=== PATIENT | female | born 1985 | race Caucasian/White ===

== ENCOUNTER 2019-05-01 15:27 | Inpatient (IN) | payer SELFPAY ==
--- NOTE | 2019-05-01 15:56 | ER Document Report ---
ED Medical Screen (RME) - General Chief Complaint: Fall Injury Stated Complaint: FALL/LEFT ANKLE PAIN Time Seen by Provider: 05/01/19 15:48 Primary Care Provider: HOSSEIN MENA DO [Primary Care Provider] - Follow up as needed Mode of Arrival: Wheelchair Information source: Patient Notes: This 33-year-old female presents emergency department with left ankle and foot pain. Reports she fell on Tuesday and has not been able to walk since that time. She reports when she lifts her foot up her foot just falls like it is . Patient has ecchymosis and dark area to the anterior part of her ankle. She reports the dark area appeared on Tuesday. She reports she did not have any bleeding at all at the time of her accident. I have greeted and performed a rapid initial assessment of this patient. A comprehensive ED assessment and evaluation of the patient, analysis of test results and completion of the medical decision making process will be conducted by additional ED providers. Dictation of this chart was performed using voice recognition software; therefore, there may be some unintended grammatical errors. - Related Data Allergies/Adverse Reactions: No Known Allergies Allergy (Verified 05/01/19 15:47) Past Medical History Past Surgical History: Reports: Hx Section - Immunizations Hx Diphtheria, Pertussis, Tetanus Vaccination: Yes Physical Exam - Vital signs Vitals: Temp Pulse Resp BP 97.7 F 90 21 H 146/94 H 05/01/19 15:40 05/01/19 15:40 05/01/19 15:40 05/01/19 15:40 Course - Vital Signs Vital signs: Temp Pulse Resp BP Pulse Ox 97.7 F 90 21 H 146/94 H 05/01/19 15:40 05/01/19 15:40 05/01/19 15:40 05/01/19 15:40 Doctor's Discharge - Discharge Referrals: HOSSEIN MENA DO [Primary Care Provider] - Follow up as needed
--- NOTE | 2019-05-01 16:26 | RADIOLOGY REPORT (SQ) ---
EXAM DESCRIPTION: ANKLE LEFT COMPLETE COMPLETED DATE/TIME: 05/01/2019 4:15 pm REASON FOR STUDY: fall unable to walk COMPARISON: None. NUMBER OF VIEWS: Three views. TECHNIQUE: AP, lateral, and oblique radiographic images acquired of the left ankle. LIMITATIONS: None. FINDINGS: MINERALIZATION: Normal. BONES: Oblique fracture of the distal tibia. There also appears to be a fracture component extending to the plafond. Slightly comminuted fracture of the distal fibula. JOINTS: No effusions. SOFT TISSUES: No soft tissue swelling. No foreign body. OTHER: No other significant finding. IMPRESSION: Tibial and fibular fractures. The ankle mortise is maintained. TECHNICAL DOCUMENTATION: JOB ID: [id number] [employer]- All Rights Reserved Reading location - IP/workstation name: [email or web address]
[2019-05-01] MEDS ORDERED: ONDANSETRON HCL INJ/PF 4 MG/2 ML SDV IV ONE ×2 (16:36→19:38)
[2019-05-01] MEDS ORDERED: DIPH/PERTUSS(ACELL)/TETANUS VAC/PF 0.5 ML SYR (>=10YO) IM ONE (16:37)
[2019-05-01] MEDS ORDERED: MORPHINE SULFATE 10 MG/ML INJ IV ONE ×2 (16:37→18:07)
--- NOTE | 2019-05-01 16:39 | ER Document Report ---
ED Extremity Problem, Lower - General Chief Complaint: Ankle Pain Stated Complaint: FALL/LEFT ANKLE PAIN Time Seen by Provider: 05/01/19 15:48 Mode of Arrival: Wheelchair Information source: Patient, Relative Notes: Ms. Meza is an otherwise healthy 33 yo F presenting to ED for L ankle pain and inability to ambulate. Patient states she was drinking heavily on Tuesday and fell of a porch, approx 8-12 inches up from the ground. Patient states she was able to get up and get into bed. She states when she attempted to wake up Tuesday morning to go to the bathroom, she was unable to walk so she scooted herself on the ground to the toilet. She thought it was a bad sprain though her significant other insisted that she be evaluated. She is unsure where and how she sustained the medial side wound and denies ever seeing a piece of bone sticking out of her leg. Patient endorses significant pain at this point in time but she is able to move her toes. She denies any other trauma anywhere on her body. Her last tetanus shot was in 2008 or 2009. She has no known medical problems and no known allergies. Patient is a G1, P1 with an otherwise healthy 10-year-old son. - Related Data Allergies/Adverse Reactions: No Known Allergies Allergy (Verified 05/01/19 15:47) Past Medical History - General Information source: Patient - Social History Smoking Status: Current Every Day Smoker Family History: Reviewed & Not Pertinent Patient has suicidal ideation: No Patient has homicidal ideation: No Past Surgical History: Reports: Hx Section - Immunizations Hx Diphtheria, Pertussis, Tetanus Vaccination: Yes Review of Systems - Review of Systems Constitutional: See HPI EENT: No symptoms reported Cardiovascular: No symptoms reported Respiratory: No symptoms reported Gastrointestinal: No symptoms reported Genitourinary: No symptoms reported Female Genitourinary: No symptoms reported Musculoskeletal: See HPI Skin: No symptoms reported Hematologic/Lymphatic: No symptoms reported Neurological/Psychological: No symptoms reported Physical Exam - Vital signs Vitals: Temp Pulse Resp BP 97.7 F 90 21 H 146/94 H 05/01/19 15:40 05/01/19 15:40 05/01/19 15:40 05/01/19 15:40 Interpretation: Normal - General General appearance: Appears well, Alert - HEENT Head: Normocephalic, Atraumatic Eyes: Normal Pupils: PERRL - Respiratory Respiratory status: No respiratory distress Chest status: Nontender Breath sounds: Normal Chest palpation: Normal - Cardiovascular Rhythm: Regular Heart sounds: Normal auscultation Murmur: No - Abdominal Inspection: Normal Distension: No distension Bowel sounds: Normal Tenderness: Nontender Organomegaly: No organomegaly - Back Back: Normal, Nontender - Extremities General upper extremity: Normal inspection, Nontender, Normal color, Normal ROM, Normal temperature General lower extremity: Normal temperature, Other - Left ankle swelling with ecchymosis. There is approximately a 1.5 medial ankle wound with a small amount of scabbing. Left ankle appears grossly deformed. Biphasic pulse appreciated by Doppler. +1 palpable DP, decreased in comparison to the right lower extremity. Left lower extremity is approximately 3 cm shorter than the right lower extremity.. No: Maximiliano's sign - Neurological Neuro grossly intact: Yes Cognition: Normal Orientation: AAOx4 [place] Coma Scale Eye Opening: Spontaneous [place] Coma Scale Verbal: Oriented [place] Coma Scale Motor: Obeys Commands [place] Coma Scale Total: 15 Speech: Normal Motor strength normal: LUE, RUE, LLE, RLE Sensory: Normal - Psychological Associated symptoms: Normal affect, Normal mood - Skin Skin Temperature: Warm Skin Moisture: Dry Skin Color: Normal Course - Re-evaluation Re-evalutation: Patient is uncomfortable appearing but nontoxic. Initial vitals within normal limits. Differential diagnosis includes fracture, dislocation, open fracture, laceration X-ray obtained from triage shows evidence of a significant tibial as well as fibular fracture with a close proximity between the medial surface of the tibia and the area where the wound is appreciated. Concerned that at some point the fracture was open. Patient ordered for tetanus, and 2 g of Ancef. Patient also ordered for Zofran as well as morphine for pain control. Will obtain preop labs. CBC, CMP and PT/INR all within normal limits. EKG within normal limits. Chest x-ray also unremarkable. 05/01/19 16:[address] Roblero, orthopedic on-call. Recommended applying Betadine to the wound, placing a posterior leg splint after reduction. Amenable to 2 g Ancef, and tetanus. Requesting preop labs and admit to his service. 05/01/19 18:15 Patient interestingly sedated with 10 mg of etomidate. Reduction was performed and splinted in a posterior leg. Postreduction x-ray ordered. Soon after the reduction, the patient was having some pretty significant pain so she is given an additional 4 mg of morphine. 05/01/19 18:53 Postreduction x-ray shows improvement of fracture alignment. - Vital Signs Vital signs: Temp Pulse Resp BP Pulse Ox 97.7 F 97 13 163/92 H 100 05/01/19 15:40 05/01/19 18:17 05/01/19 18:31 05/01/19 18:31 05/01/19 18:31 - Laboratory Result Diagrams: 05/01/19 16:40 05/01/19 16:40 - Diagnostic Test Radiology reviewed: Image reviewed, Reports reviewed - EKG Interpretation by Me EKG shows normal: Sinus rhythm, [place], Intervals, QRS Complexes Rate: Normal Rhythm: NSR Procedures - Conscious Sedation Conscious sedation Consent obtained: Yes Prior complications: Procedural sedation Normal healthy pt.: P1. - ASA Classification Airway Evaluation: Normal anatomy Mallampati Classification: Class 2 Used during procedure: Suction available, IV access obtained, Pulse ox on pt., youth nutritional monitor on pt., Other - Capnography Medications administered: Etomidate Reversal agents: None I personally performed/intraservice time: Sedation, 30 min or less Complications: No - Immobilization Left Posterior Leg Pre-Proc Neuro Vasc Exam: Normal Immobilizer type: Short Leg Posterior Performed by: Provider assisted, RN, PCT Post-Proc Neuro Vasc Exam: Normal Alignment checked and good: Yes - Joint Reduction/Fracture Care Left Leg Consent obtained: Yes Conscious sedation: Yes Pre-procedure NV exam: Yes - normal Fracture: Open Manipulation comment: distraction Post-procedure NV exam: Yes - normal Post-reduction x-ray: Joint reduced Reduction attempts: 1 Complications: No Discharge - Discharge Clinical Impression: Fracture of tibia with fibula, left, open, Fall, Left ankle pain Condition: Good Disposition: ADMITTED INPATIENT Admitting Provider: Annika Unit Admitted: Surgical Floor
[2019-05-01 16:59] LABS: ABSOLUTE LYMPHOCYTES (AUTO) 1.4 10^3/uL (0.5-4.7); ABSOLUTE MONOCYTES (AUTO) 0.9 10^3/uL (0.1-1.4); ABSOLUTE NEUT (AUTO) 6.7 10^3/uL (1.7-8.2); BASOPHILS % (AUTO) 0.5 % (0-2); EOSINOPHILS % (AUTO) 0.4 % (0-6); HEMATOCRIT 41.2 % (36.0-47.0); LYMPHOCYTES % (AUTO) 15.1 % (13-45); MEAN CORPUSCULAR HEMOGLOBIN 31.7 pg (27.0-33.4); MEAN CORPUSCULAR HGB CONC 33.9 g/dL (32.0-36.0); MEAN CORPUSCULAR VOLUME 93 fl (80-97); MONOCYTES % (AUTO) 9.7 % (3-13); PLATELET COUNT 222 10^3/uL (150-450); RED BLOOD COUNT 4.42 10^6/uL (3.72-5.28); RED CELL DISTRIBUTION WIDTH 12.8 % (11.5-14.0); SEGMENTED NEUTROPHILS % (AUTO) 74.3 % (42-78); TOTAL CELLS COUNTED % (AUTO) 100 %; WHITE BLOOD COUNT 9.1 10^3/uL (4.0-10.5)
--- NOTE | 2019-05-01 17:01 | RADIOLOGY REPORT (SQ) ---
EXAM DESCRIPTION: CHEST SINGLE VIEW COMPLETED DATE/TIME: 05/01/2019 4:52 pm REASON FOR STUDY: pre-op cxr COMPARISON: 11/19/2012 EXAM PARAMETERS: NUMBER OF VIEWS: One view. TECHNIQUE: Single frontal radiographic view of the chest acquired. RADIATION DOSE: NA LIMITATIONS: None. FINDINGS: LUNGS AND PLEURA: No opacities, masses or pneumothorax. No pleural effusion. MEDIASTINUM AND HILAR STRUCTURES: No masses. Contour normal. HEART AND VASCULAR STRUCTURES: Cardiomegaly. No pulmonary edema. BONES: No acute findings. HARDWARE: None in the chest. OTHER: No other significant finding. IMPRESSION: Cardiomegaly without pulmonary edema. TECHNICAL DOCUMENTATION: JOB ID: [id number] [employer]- All Rights Reserved Reading location - IP/workstation name: [email or web address]
[2019-05-01 17:16] LABS: INTERNATIONAL RATION (INR) 0.89
[2019-05-01] MEDS ORDERED: ETOMIDATE INJ/PF 20 MG/10 ML SDV IV ONE (17:27)
[2019-05-01 17:30] LABS: ALBUMIN 4.4 g/dL (3.5-5.0); ALKALINE PHOSPHATASE 82 U/L (38-126); ANION GAP 12 (5-19); ASPARTATE AMINO TRANSFERASE 30 U/L (14-36); BILIRUBIN,DIRECT 0.2 mg/dL (0.0-0.4); BILIRUBIN,TOTAL 0.7 mg/dL (0.2-1.3); BLOOD UREA NITROGEN 11 mg/dL (7-20); CALCIUM 9.7 mg/dL (8.4-10.2); CARBON DIOXIDE 22 mmol/L (22-30); CHLORIDE 105 mmol/L (98-107); GLUCOSE 102 mg/dL (75-110)
[2019-05-01] MEDS ORDERED: NORMAL SALINE 1000 ML 1,000 ML IV ONE (17:31)
[2019-05-01] MEDS ORDERED: MORPHINE SULFATE 10 MG/ML INJ ONE (17:56)
[2019-05-01] MEDS ORDERED: CEFAZOLIN 2 GM/D5W RTU 2 GM/50 ML RTUPB IV SCH (18:00)
--- NOTE | 2019-05-01 18:31 | RADIOLOGY REPORT (SQ) ---
EXAM DESCRIPTION: ANKLE LEFT AP/LATERAL COMPLETED DATE/TIME: 05/01/2019 6:16 pm REASON FOR STUDY: er 4 post reduction/fall COMPARISON: None. NUMBER OF VIEWS: Two views. TECHNIQUE: AP and lateral radiographic images acquired of the left ankle. LIMITATIONS: None. FINDINGS: Postreduction views with the ankle in a splint show that the angulation has been reduced. IMPRESSION: Postreduction images show improved alignment. TECHNICAL DOCUMENTATION: JOB ID: [id number] [employer]- All Rights Reserved Reading location - IP/workstation name: [email or web address]
[2019-05-01] MEDS: CEFAZOLIN SODIUM 2 GM in DEXTROSE 5%-WATER 100 ML IV SCH (18:57)
[2019-05-01] MEDS ORDERED: HYDROMORPHONE HCL INJ/PF 2 MG/ML AMPULE IV ONE (19:38)
--- NOTE | 2019-05-01 22:47 | EKG REPORT ---
SEVERITY:- ABNORMAL ECG - SINUS RHYTHM NONSPECIFIC T ABNORMALITIES, LATERAL LEADS : Confirmed by: Ángel Willson MD 01-May-2019 22:47:04
[2019-05-01] MEDS ORDERED: GLUCAGON,HUMAN RECOMB 1 MG INJ SUBCUT PRN (23:13)
[2019-05-01] MEDS ORDERED: DEXTROSE 50%-WATER 25 GM/50 ML DISP.SYRIN IV PRN ×2 (23:13)
[2019-05-01] MEDS ORDERED: DEXTROSE 40% GEL 15 GM TUBE PO PRN ×2 (23:13)
[2019-05-02] MEDS: CEFAZOLIN SODIUM 2 GM in DEXTROSE 5%-WATER 100 ML IV SCH ×5 (00:25→23:44)
[2019-05-02] MEDS: MORPHINE SULFATE 10 MG/ML INJ IV PRN ×3 (00:27→09:29)
[2019-05-02] MEDS: RINGERS SOLUTION,LACTATED 1,000 ML IV PRN ×4 (00:36→23:43)
[2019-05-02] MEDS ORDERED: CEFAZOLIN SODIUM 2 GM in DEXTROSE 5%-WATER 100 ML IV PRN (07:55)
[2019-05-02] MEDS ORDERED: RINGERS SOLUTION,LACTATED 1,000 ML IV PRN ×2 (07:56→15:50)
--- NOTE | 2019-05-02 08:45 | PDOC H&P ---
History of Present Illness Admission Date/PCP: 05/01/19 17:11 History of Present Illness: CARIN SOLIS is a 33 year old female Patient is a 33-year-old female who presents to the emergency room on Tuesday after a fall off a porch on Tuesday. Evaluation emergency room demonstrates a distal third tib-fib fracture question grade 1 open. Patient is admitted to the orthopedic service for fracture management. Past Medical History Medical History: None Past Surgical History Past Surgical History: Reports: Section Social History Information Source: Patient, [facility] Records Smoking Status: Current Every Day Smoker Cigarettes Packs Per Day: 0.5 Electronic Cigarette use?: No Number of Years Smokin Frequency of Alcohol Use: Occasional Hx Recreational Drug Use: No Hx Prescription Drug Abuse: No - Advance Directive Resuscitation Status: Full Code Family History Family History: Reviewed & Not Pertinent Parental Family History Reviewed: No Children Family History Reviewed: No Sibling(s) Family History Reviewed.: No Medication/Allergy Home Medications: No Home Medications 05/01/19 Allergies/Adverse Reactions: loratadine [From Claritin] Allergy (Verified 05/02/19 00:14) Review of Systems All systems: as per [place] Physical Exam Vital Signs: Temp Pulse Resp BP Pulse Ox 36.3 C 79 17 161/80 H 95 05/01/19 22:48 05/01/19 22:48 05/01/19 22:48 05/01/19 22:48 05/01/19 22:48 Intake & Output 05/01/19 05/02/19 05/03/19 06:59 06:59 06:59 Intake Total 1300 Balance 1300 Weight 68.7 kg Physical Exam: Patient is an alert middle-aged white female lying in a [facility]. She is alert cooperative and interactive. General appearance: PRESENT: no acute distress, mild distress Head exam: PRESENT: normocephalic Respiratory exam: PRESENT: unlabored Cardiovascular exam: PRESENT: RRR Vascular exam: PRESENT: normal capillary refill GI/Abdominal exam: PRESENT: soft Rectal exam: PRESENT: deferred Extremities exam: PRESENT: other - Left lower extremity immobilized in plaster splint. Toes are visible. There is brisk capillary refill. Sensory examination is intact to light touch. Great toe flexion extension is intact. Neurological exam: PRESENT: alert, awake, oriented to person, oriented to place, oriented to time, oriented to situation. ABSENT: motor sensory deficit Psychiatric exam: PRESENT: appropriate affect, normal mood. ABSENT: homicidal ideation, suicidal ideation Skin exam: PRESENT: dry, intact, warm. ABSENT: cyanosis, rash Results Laboratory Results: 05/01/19 16:40 05/01/19 16:40 05/01/19 05/01/19 16:40 16:40 WBC 9.1 RBC 4.42 Hgb 14.0 Hct 41.2 MCV 93 MCH 31.7 MCHC 33.9 RDW 12.8 Plt Count 222 Seg Neutrophils % 74.3 Sodium 139.4 Potassium 4.0 Chloride 105 Carbon Dioxide 22 Anion Gap 12 BUN 11 Creatinine 0.70 Est GFR ( Amer) > 60 Glucose 102 Calcium 9.7 Total Bilirubin 0.7 AST 30 Alkaline Phosphatase 82 Total Protein 8.0 Albumin 4.4 Impressions: Ankle X-Ray 05/01/19 15:53 IMPRESSION: Tibial and fibular fractures. The ankle mortise is maintained. Chest X-Ray 05/01/19 16:33 IMPRESSION: Cardiomegaly without pulmonary edema. Status: Imported from PACS Assessment & Plan - Diagnosis (1) Fracture of tibia with fibula, left, open Qualifiers: Open fracture type: open type I or II Is this a current diagnosis for this admission?: Yes Plan: Patient will be taken to the operating room today for irrigation debridement, ORIF of a left lower extremity open grade 1 open fracture - Time Time Spent: 50 to 70 Minutes Anticipated discharge: Home with Homehealth Within: within 48 hours
[2019-05-02] MEDS ORDERED: SUCCINYLCHOLINE CHLORIDE INJ 200 MG/10 ML VIAL ONE (09:37)
[2019-05-02] MEDS ORDERED: FENTANYL CITRATE INJ/PF 100 MCG/2 ML AMPUL ONE ×3 (13:35→15:52)
[2019-05-02] MEDS ORDERED: MIDAZOLAM 2 MG/2 ML INJ ONE (13:35)
[2019-05-02] MEDS ORDERED: ONDANSETRON HCL INJ/PF 4 MG/2 ML SDV ONE (13:35)
[2019-05-02] MEDS ORDERED: KETOROLAC TROMETHAMINE 60 MG/2 ML SDV ONE (13:35)
[2019-05-02] MEDS ORDERED: PROPOFOL INJ 200 MG/20 ML VIAL IV ONE (13:36)
[2019-05-02] MEDS ORDERED: MORPHINE SULFATE 10 MG/ML INJ ONE (14:17)
[2019-05-02] MEDS ORDERED: DIPHENHYDRAMINE HCL 50 MG/ML VIAL IV PRN (14:33)
[2019-05-02] MEDS ORDERED: OXYCODONE-ACETAMINOPHEN 5-325 MG TABLET PO PRN ×2 (14:33)
[2019-05-02] MEDS ORDERED: ONDANSETRON HCL INJ/PF 4 MG/2 ML SDV IV PRN (14:33)
[2019-05-02] MEDS ORDERED: FENTANYL CITRATE INJ/PF 100 MCG/2 ML AMPUL IV PRN ×3 (14:33)
[2019-05-02] MEDS ORDERED: MORPHINE SULFATE 10 MG/ML INJ IV PRN (14:33)
[2019-05-02] MEDS ORDERED: MEPERIDINE HCL/PF INJ 25 MG/1 ML DISP.SYRIN IV PRN (14:33)
[2019-05-02] MEDS ORDERED: PROMETHAZINE HCL INJ 25 MG/1 ML VIAL IV PRN ×2 (14:33)
--- NOTE | 2019-05-02 15:18 | Operative Report ---
Operative Report DATE OF SURGERY: 05/02/19 PREOPERATIVE DIAGNOSIS: Grade 1 open distal third tib-fib fracture left OPERATION: Irrigation debridement of open wound including skin, subcutaneous tissue, fascia, and bone. Open reduction internal fixation left distal fibula fracture. Intramedullary nailing of left distal tibia fracture SURGEON: LATISHA TAY ANESTHESIA: GA TISSUE REMOVED OR ALTERED: Tissue to pathology ESTIMATED BLOOD LOSS: 50 PROCEDURE: With the patient supine Afrin table left lower extremities prepped and draped in sterile fashion. Limb is elevated for exsanguination tourniquet inflated 280 torr. The open wound which is anteromedial on the distal tibia is debrided sharply to include bone, soft tissue, and skin. This is sent to pathology. Next a longitudinal incision was made over the lateral surface of the distal fibula. The distal fibula fracture was identified. Its reduced anatomically and held with a lobster claw clamps. Subsequently [place] titanium distal fibula plate is placed and secured with 4 screws distally and 4 screws proximally. Next a longitudinal incision was made over the distal medial aspect of the patella and sharp dissection was carried incision down to the proximal tibial articular surface. A pin is placed percutaneously into the proximal tibial metadiaphysis and a combined reamer is used to fashion a cortical opening. These are removed and a ball-tipped guide rods placed down the tibia across the fracture site to the distal physis seal scar. Tibial length measures 300 mm. Subsequently a flexible cylindrical reamers were used to increase the diaphysis to a diameter of 10 mm. Next a Fate 9 mm x 300 mm T2 tibial nail was advanced over the ball-tipped guide cristina to the level of the distal fascial scar. A single proximal interlock is placed in the static hole. Both anterior posterior as well as medial lateral screws are placed across the distal tibial fragment to secure the reduction. The tourniquet was deflated. Hemostasis obtained. Wounds are irrigated with bulb lavage containing normal saline and Betadine. The wounds were then closed in layers with interrupted Vicryl followed by ric. A sterile compressive dressing was applied and the patient's return to the PACU in satisfactory vision.
--- NOTE | 2019-05-02 15:47 | RADIOLOGY REPORT (SQ) ---
EXAM DESCRIPTION: TIBIA FIBULA LEFT; NO CHG FLUORO COMPLETED DATE/TIME: 05/02/2019 3:29 pm REASON FOR STUDY: ORIF LEFT TIB/FIB ASST WITH FLUORO IN OR COMPARISON: None. FLUOROSCOPY TIME: 1.5 minutes 12 fluoroscopic images images saved to PACS. TECHNIQUE: Intra-operative images acquired during surgical procedure to evaluate progress. NUMBER OF IMAGES: 12 C-arm images LIMITATIONS: None. FINDINGS: Intra procedural imaging and fluoro during ORIF left distal tibia and fibular fractures. IMPRESSION: IMAGE(S) OBTAINED DURING PROCEDURE. COMMENT: Quality ID [id number]: Final reports for procedures using fluoroscopy that document radiation exp osure indices, or exposure time and number of fluorographic images (if radiation exposure indices are not available) Please consult full operative report of the attending physician for description of the procedure. TECHNICAL DOCUMENTATION: JOB ID: [id number] [employer]- All Rights Reserved Reading location - IP/workstation name: [email or web address]
--- NOTE | 2019-05-02 15:47 | RADIOLOGY REPORT (SQ) ---
EXAM DESCRIPTION: TIBIA FIBULA LEFT; NO CHG FLUORO COMPLETED DATE/TIME: 05/02/2019 3:29 pm REASON FOR STUDY: ORIF LEFT TIB/FIB ASST WITH FLUORO IN OR COMPARISON: None. FLUOROSCOPY TIME: 1.5 minutes 12 fluoroscopic images images saved to PACS. TECHNIQUE: Intra-operative images acquired during surgical procedure to evaluate progress. NUMBER OF IMAGES: 12 C-arm images LIMITATIONS: None. FINDINGS: Intra procedural imaging and fluoro during ORIF left distal tibia and fibular fractures. IMPRESSION: IMAGE(S) OBTAINED DURING PROCEDURE. COMMENT: Quality ID [id number]: Final reports for procedures using fluoroscopy that document radiation exp osure indices, or exposure time and number of fluorographic images (if radiation exposure indices are not available) Please consult full operative report of the attending physician for description of the procedure. TECHNICAL DOCUMENTATION: JOB ID: [id number] [employer]- All Rights Reserved Reading location - IP/workstation name: [email or web address]
[2019-05-02] MEDS: OXYCODONE HCL IR 5 MG TABLET PO PRN (17:33)
[2019-05-02] MEDS: OXYCODONE HCL SR 10 MG TABLET PO SCH (21:21)
[2019-05-03] MEDS: OXYCODONE HCL IR 5 MG TABLET PO PRN ×2 (02:24→11:43)
[2019-05-03] MEDS: CEFAZOLIN SODIUM 2 GM in DEXTROSE 5%-WATER 100 ML IV SCH ×2 (05:43→11:43)
[2019-05-03 06:10] LABS: HEMATOCRIT 33.1 % (36.0-47.0); MEAN CORPUSCULAR HEMOGLOBIN 32.1 pg (27.0-33.4); MEAN CORPUSCULAR HGB CONC 34.8 g/dL (32.0-36.0); MEAN CORPUSCULAR VOLUME 92 fl (80-97); PLATELET COUNT 170 10^3/uL (150-450); RED BLOOD COUNT 3.59 10^6/uL (3.72-5.28); RED CELL DISTRIBUTION WIDTH 12.7 % (11.5-14.0); WHITE BLOOD COUNT 6.9 10^3/uL (4.0-10.5)
[2019-05-03 06:15] LABS: HEMOGLOBIN 11.5 g/dL (12.0-15.5)
[2019-05-03 06:27] LABS: ANION GAP 9 (5-19); BLOOD UREA NITROGEN 6 mg/dL (7-20); C-REACTIVE PROTEIN 58.3 mg/L (<10.0); CARBON DIOXIDE 26 mmol/L (22-30); CHLORIDE 103 mmol/L (98-107); GLUCOSE 92 mg/dL (75-110); POTASSIUM 3.5 mmol/L (3.6-5.0)
[2019-05-03 06:50] LABS: ERYTHROCYTE SEDIMENTATION RATE 32 mm/hr (0-20)
--- NOTE | 2019-05-03 07:02 | PDOC DISCHARGE SUMMARY ---
Impression - Admit/DC Date/PCP Admission Date/Primary Care Provider: 05/01/19 17:11 Discharge Date: 05/03/19 - Discharge Diagnosis (1) Fracture of tibia with fibula, left, open Is this a current diagnosis for this admission?: Yes - Additional Information Resuscitation Status: Full Code Discharge Diet: Regular Discharge Activity: No tub bath Referrals: HOSSEIN MENA DO [NO LOCAL MD] - Follow up as needed Home Medications: No Home Medications 05/01/19 History of Present Illiness History of Present Illness: Patient is a 33-year-old white female who fell off a stoop on Tuesday and then presented on Tuesday to the emergency room with a grade 1 open left distal third tib-fib fracture. She is admitted to the orthopedic service for fracture management. Hospital Course Hospital Course: Patient is started on empiric antibiotic therapy. Patient is taken to the waiting room and undergoes irrigation debridement of the open wound followed by an open reduction internal fixation of the distal fibular and distal tibia fracture. She is returned to floor in satisfactory condition. Pain control seems to be reasonable. Dressing remains clean dry and intact. Distal neurova scular examination remains intact. Patient remains afebrile. Physical Exam Vital Signs: Temp Pulse Resp BP Pulse Ox 36.9 C 93 17 141/81 H 97 05/02/19 23:56 05/02/19 23:56 05/02/19 23:56 05/02/19 23:56 05/02/19 23:56 Intake & Output 05/01/19 05/02/19 05/03/19 06:59 06:59 06:59 Intake Total 1300 5575 Output Total 120 Balance 1300 5455 Weight 68.7 kg 69.6 kg General appearance: PRESENT: no acute distress, mild distress, well-developed, well-nourished Head exam: PRESENT: normocephalic Respiratory exam: PRESENT: unlabored Cardiovascular exam: PRESENT: RRR Vascular exam: PRESENT: normal capillary refill GI/Abdominal exam: PRESENT: soft Rectal exam: PRESENT: deferred Neurological exam: PRESENT: alert, awake, oriented to person, oriented to place, oriented to time, oriented to situation. ABSENT: motor sensory deficit Psychiatric exam: PRESENT: appropriate affect, normal mood. ABSENT: homicidal ideation, suicidal ideation Skin exam: PRESENT: dry, intact, warm. ABSENT: cyanosis, rash Results Laboratory Results: WBC 6.9 10^3/uL (4.0-10.5) 05/03/19 04:37 RBC 3.59 10^6/uL (3.72-5.28) L 05/03/19 04:37 Hgb 11.5 g/dL (12.0-15.5) L D 05/03/19 04:37 Hct 33.1 % (36.0-47.0) L 05/03/19 04:37 MCV 92 fl (80-97) 05/03/19 04:37 MCH 32.1 pg (27.0-33.4) 05/03/19 04:37 MCHC 34.8 g/dL (32.0-36.0) 05/03/19 04:37 RDW 12.7 % (11.5-14.0) 05/03/19 04:37 Plt Count 170 10^3/uL (150-450) 05/03/19 04:37 Lymph % (Auto) 15.1 % (13-45) 05/01/19 16:40 [place] % (Auto) 9.7 % (3-13) 05/01/19 16:40 Eos % (Auto) 0.4 % (0-6) 05/01/19 16:40 Baso % (Auto) 0.5 % (0-2) 05/01/19 16:40 Absolute Neuts (auto) 6.7 10^3/uL (1.7-8.2) 05/01/19 16:40 Absolute Lymphs (auto) 1.4 10^3/uL (0.5-4.7) 05/01/19 16:40 Absolute Monos (auto) 0.9 10^3/uL (0.1-1.4) 05/01/19 16:40 Absolute Eos (auto) 0.0 10^3/uL (0.0-0.6) 05/01/19 16:40 Absolute Basos (auto) 0.0 10^3/uL (0.0-0.2) 05/01/19 16:40 Seg Neutrophils % 74.3 % (42-78) 05/01/19 16:40 ESR 32 mm/hr (0-20) H 05/03/19 04:37 PT 12.0 SEC (11.4-15.4) 05/01/19 16:40 INR 0.89 05/01/19 16:40 Sodium 137.6 mmol/L (137-145) 05/03/19 04:37 Potassium 3.5 mmol/L (3.6-5.0) L 05/03/19 04:37 Chloride 103 mmol/L (98-107) 05/03/19 04:37 Carbon Dioxide 26 mmol/L (22-30) 05/03/19 04:37 Anion Gap 9 (5-19) 05/03/19 04:37 BUN 6 mg/dL (7-20) L 05/03/19 04:37 Creatinine 0.62 mg/dL (0.52-1.25) 05/03/19 04:37 Est GFR ( Amer) > 60 (>60) 05/03/19 04:37 Est GFR (MDRD) Non-Af > 60 (>60) 05/03/19 04:37 Glucose 92 mg/dL (75-110) 05/03/19 04:37 Calcium 9.0 mg/dL (8.4-10.2) 05/03/19 04:37 Total Bilirubin 0.7 mg/dL (0.2-1.3) 05/01/19 16:40 Direct Bilirubin 0.2 mg/dL (0.0-0.4) 05/01/19 16:40 Neonat Total Bilirubin Not Reportable 05/01/19 16:40 Neonat Direct Bilirubin Not Reportable 05/01/19 16:40 Neonat Indirect Bili Not Reportable 05/01/19 16:40 AST 30 U/L (14-36) 05/01/19 16:40 ALT 17 U/L (<35) 05/01/19 16:40 Alkaline Phosphatase 82 U/L (38-126) 05/01/19 16:40 C-Reactive Protein 58.3 mg/L (<10.0) H 05/03/19 04:37 Total Protein 8.0 g/dL (6.3-8.2) 05/01/19 16:40 Albumin 4.4 g/dL (3.5-5.0) 05/01/19 16:40 Impressions: Ankle X-Ray 05/01/19 00:00 IMPRESSION: Postreduction images show improved alignment. Ankle X-Ray 05/01/19 15:53 IMPRESSION: Tibial and fibular fractures. The ankle mortise is maintained. Chest X-Ray 05/01/19 16:33 IMPRESSION: Cardiomegaly without pulmonary edema. Fluoroscopy 05/02/19 00:00 IMPRESSION: IMAGE(S) OBTAINED DURING PROCEDURE. Tibia/Fibula X-Ray 05/02/19 00:00 IMPRESSION: IMAGE(S) OBTAINED DURING PROCEDURE. Plan Plan of Treatment: Patient to be seen by physical therapy this morning for touchdown weightbearing restriction ambulation. She can then be discharged home with home health services and DME. Follow-up with Dr. Roblero and [facility] for surgery in 10 days. Patient is first with prescriptions for Percocet as well as Augmentin. Time Spent: Less than 30 Minutes Stroke Is this a Stroke Patient?: No Stroke Pt being discharged on Anti-thrombolytic therapy?: Yes Acute Heart Failure - Is this a Heart Failure Patient?: No
[2019-05-03] MEDS: OXYCODONE HCL SR 10 MG TABLET PO SCH (09:35)
[2019-05-03] MEDS: RINGERS SOLUTION,LACTATED 1,000 ML IV PRN (09:42)
[2019-05-03] MEDS ORDERED: CEFTRIAXONE 2 GM/D5W RTU 2 GM/50 ML RTUPB IV SCH (10:00)
[2019-05-03] MEDS ORDERED: ASPIRIN 81 MG TABLET, ENT COATED PO SCH (10:00)
[2019-05-03 13:55] VITALS: BP 155/86
== END 2019-05-03 18:15 | disposition home or self-care (01) | DRG 492 ==
LOC: ER 15:27 → EH 17:11 → 4N 22:37
PROVIDERS: ADMIT Orthopaedic Surgery; ATTEND Orthopaedic Surgery
PROC: 3E0234Z Introduction of Serum, Toxoid and Vaccine into Muscle, Percutaneous Approach (ICD-10-PCS; 2019-05-01)
PROC: 0QSH06Z Reposition Left Tibia with Intramedullary Internal Fixation Device, Open Approach (ICD-10-PCS; 2019-05-02)
PROC: 0QSK04Z Reposition Left Fibula with Internal Fixation Device, Open Approach (ICD-10-PCS; principal; 2019-05-02 12:00)
DX: S82.302B Unspecified fracture of lower end of left tibia, initial encounter for open fracture type I or II (principal); S82.832B Other fracture of upper and lower end of left fibula, initial encounter for open fracture type I or II; W10.8XXA Fall (on) (from) other stairs and steps, initial encounter; Z23 Encounter for immunization; F17.210 Nicotine dependence, cigarettes, uncomplicated; Z88.8 Allergy status to other drugs, medicaments and biological substances; X58.XXXA Exposure to other specified factors, initial encounter; Y93.9 Activity, unspecified
CPT/HCPCS: 36415; 71045; 80048; 80053; 85025; 85027; 85610; 85652; 86140; 87040; 87077; 87186; 90471; 90715; 93005; 93010; 96374; 96375; 99284; 99152; C1713; C1769; J0330; J0690; J0696; J1170; J1885; J2250; J2270; J2405; J2704; J3010; J3490; J7030; J7060; J7120